=== PATIENT | female | born 1965 | race Caucasian/White ===

== ENCOUNTER 2018-08-10 23:57 | Emergency (ER) ==
[2018-08-11 00:08] VITALS: BP 120/82; TEMP 98.2
--- NOTE | 2018-08-11 00:48 | CT ---
Exam: CT of the right knee without contrast History: Knee pain Technique: [address] of the right knee with multiplanar reformations FINDINGS: No acute bony or articular abnormalities are seen. Chondrocalcinosis in the medial and la teral compartment. Marginal osteophytosis is generally mild. There is joint surface sclerosis bilat erally. No joint effusion. No peripheral soft tissue abnormality. Impression: 1. Tricompartmental osteoarthritic change of at least moderate severity. No acute bony or articular abnormality.
[2018-08-11] MEDS ORDERED: NORCO 5-325 PO STA (01:12)
--- NOTE | 2018-08-11 01:15 | ED.PDOC ---
General ED Provider: Dr. THAD DUNCAN-ER Chief Complaint: Knee Pain/Injury Stated Complaint: my knee hurts Time Seen by Physician: 23:55 Mode of Arrival: Walk-In Information Source: Patient Exam Limitations: No limitations Nursing and Triage Documentation Reviewed and Agree: Yes Does patient meet sepsis criteria?: No System Inflammatory Response Syndrome: Not Applicable Sepsis Protocol: For patient's 13 years and over: Temp is 96.8 and below OR 101 and greater Pulse >90 BPM Resp >20/minute Acutely Altered Mental Status Are patient's symptoms suggestive of a new infection, such as: -Pneumonia -Skin, Soft Tissue -Endocarditis -UTI -Bone, Joint Infection -Implantable Device -Acute Abdominal Infection -Wound Infection -Meningitis -Blood Stream Catheter Infection -Unknown Musculoskeletal Complaint Exam - Knee Pain Complaint/Exam Mechanism of Injury: Reports: Trauma Onset/Duration: 3 days ago Symptoms Are: Still present Onset of Pain: Reports: Immediate Initial Severity: Mild Current Severity: Moderate Location: Reports: Discrete Character: Reports: Dull, Aching Aggravating: Reports: Movement, Weight bearing Associated Signs and Symptoms: Denies: Swelling, Redness, Bruising, Fever, Weakness, Numbness, Tingling Able to Bear Weight: Yes Knee Findings: Present: Swelling, Tenderness, Limited range of motion [place] Test Positive: No Jesus Test Positive: No Differential Diagnoses: Internal Derangement, Sprain, Strain Review of Systems - Review Of Systems Constitutional: Reports: No symptoms Eyes: Reports: No symptoms Ears, Nose, Mouth, Throat: Reports: No symptoms Respiratory: Reports: No symptoms Cardiac: Reports: No symptoms GI: Reports: No symptoms : Reports: No symptoms Musculoskeletal: Reports: Joint pain, Joint swelling Skin: Reports: No symptoms Neurological: Reports: No symptoms Endocrine: Reports: No symptoms Hematologic/Lymphatic: Reports: No symptoms All Other Systems: Reviewed and Negative Past Medical History - Past Medical History Previously Healthy: Yes Endocrine: Reports: None Cardiovascular: Reports: None Respiratory: Reports: None Hematological: Reports: None Gastrointestinal: Reports: None Genitourinary: Reports: Kidney stones Neuro/Psych: Reports: Migraine, Anxiety, Depression Musculoskeletal: Reports: Joint Pain Cancer: Reports: None Last Menstrual Period: 2002 - Surgical History General Surgical History: Reports: Hysterectomy, Orthopedic (Right shoulder x 2 , left shoulder x1) - Family History Family History: Reports: None - Social History Smoking Status: Current every day smoker, Heavy tobacco smoker Hx Substance Use: No Alcohol Screening: None - Immunizations Tetanus Shot up to Date: Yes Physical Exam - Physical Exam Appearance: Well-appearing, No pain distress, Well-nourished Pain Distress: Moderate Eyes: LUCY ENT: Ears normal, Nose normal, Oropharynx normal Neck: Supple Respiratory: Airway patent, Breath sounds clear, Breath sounds equal, Respirations nonlabored Cardiovascular: RRR GI/: Soft Musculoskeletal: Limited ROM Skin: Warm Neurological: Sensation intact Psychiatric: Affect appropriate, Mood appropriate Interpretation - Radiology Interpretation Radiology Interpretation By: Radiologist Radiology Results: Positive Exam Interpreted: CT Scan Critical Care Note - Critical Care Note Total Time (mins): 0 Course - Course Orders, Labs, Meds: Orders Category Date Time Status Hydrocodone Bit/Acetaminophen [[place] 5-325] MEDS 08/11/18 01:12 Stat 1 tab PO ONCE STA CT KNEE RIGHT WITHOUT CONTRAST Stat RADS 08/11/18 00:09 Completed Vital Signs: Temp Pulse Resp BP Pulse Ox 08/10/18 23:59 98.2 F 100 H 22 120/82 95 Departure - Departure Time of Disposition: 01:15 Disposition: HOME SELF-CARE Discharge Problem: Injury of knee Instructions: Knee Pain (ED) Condition: Good Pt referred to PMD for follow-up: Yes IPMP verified?: No Additional Instructions: norco 5mg q 6hrs prn pain #10---f/u wtih pcp and consider mri of the knee vs ortho referral Allergies/Adverse Reactions: Allergies No Known Allergies Allergy (Verified 08/11/18 00:06) Home Medications: Ambulatory Orders Ibuprofen 800 mg PO TID #30 tablet 09/03/15 Disposition Discussed With: Patient, Family
== END 2018-08-11 01:25 | disposition home or self-care (01) ==
LOC: ED 23:57
DX: S89.91XA Unspecified injury of right lower leg, initial encounter (principal); F17.210 Nicotine dependence, cigarettes, uncomplicated
CPT/HCPCS: 99283

== ENCOUNTER 2019-04-01 10:23 | Outpatient (CLI) | END 2019-04-01 10:24 | disposition home or self-care (01) | LOC: RHC-LAB 10:23 → FCC-LAB 10:24 | PROVIDERS: ATTEND Family Medicine | DX: R03.0 Elevated blood-pressure reading, without diagnosis of hypertension (principal); M15.9 Polyosteoarthritis, unspecified; M17.11 Unilateral primary osteoarthritis, right knee | CPT/HCPCS: 36415; 80053; 80061; 85025; 85651; 86038; 86140 ==

== ENCOUNTER 2019-04-01 16:50 | Outpatient (CLI) ==
--- NOTE | 2019-04-02 08:12 | DI ---
EXAM: RIGHT KNEE. HISTORY: Osteoarthritis. FINDINGS: Right knee four view. General bone density appears normal. There is mild to moderate ost eoarthritis involving the medial and lateral compartments, greater than anterior. There is chondroca lcinosis noted. No joint effusion, osteochondral fragmentation or fracture. Soft tissues within nor mal limits IMPRESSION: 1. Osteoarthritis and chondrocalcinosis.
== END 2019-04-01 16:51 | disposition home or self-care (01) ==
LOC: RAD 16:50
PROVIDERS: ATTEND Family Medicine
DX: M17.11 Unilateral primary osteoarthritis, right knee (principal)